=== PATIENT | female | born 1995 | race African-American/Black ===

== ENCOUNTER 2019-01-13 22:58 | Emergency (ER) | payer OTHER ==
[~2019-01-13] VITALS: Ht 149.9 cm; Wt 51.7 kg
[2019-01-13 23:17] LABS: URINE BILIRUBIN NEGATIVE (Negative); URINE BLOOD NEGATIVE (Negative); URINE CLARITY CLEAR; URINE COLOR YELLOW; URINE GLUCOSE-RANDOM* NEGATIVE (Negative); URINE KETONES NEGATIVE (Negative); URINE LEUKOCYTES-REFLEX NEGATIVE (Negative); URINE NITRITE-REFLEX NEGATIVE (Negative); URINE PROTEIN (DIPSTICK) NEGATIVE (Negative); URINE UROBILINOGEN 0.2 E.U./dl (0.2-1.0)
[2019-01-14 02:20] VITALS: BP 130/70
== END 2019-01-14 02:22 | disposition home or self-care (01) ==
LOC: ER 22:58
PROVIDERS: Student in an Organized Health Care Education/Training Program
DX: B75 Trichinellosis (principal)

== ENCOUNTER 2019-07-31 16:41 | Emergency (ER) | payer OTHER ==
[~2019-07-31] VITALS: Ht 149.9 cm; Wt 52.2 kg
[2019-07-31 16:45] VITALS: BP 120/70
[2019-07-31] MEDS ORDERED: FLAGYL500 M1 PO (17:22)
[2019-07-31 17:39] LABS: URINE BILIRUBIN NEGATIVE (Negative); URINE BLOOD NEGATIVE (Negative); URINE CLARITY CLEAR; URINE COLOR YELLOW; URINE GLUCOSE-RANDOM* NEGATIVE (Negative); URINE KETONES NEGATIVE (Negative); URINE LEUKOCYTES-REFLEX NEGATIVE (Negative); URINE NITRITE-REFLEX NEGATIVE (Negative); URINE PROTEIN (DIPSTICK) NEGATIVE (Negative); URINE UROBILINOGEN 0.2 E.U./dl (0.2-1.0)
== END 2019-07-31 17:51 | disposition home or self-care (01) ==
LOC: ER 16:41
PROVIDERS: Emergency Medicine
DX: N76.0 Acute vaginitis (principal)